=== PATIENT | female | born 1990 | race Caucasian/White ===

== ENCOUNTER 2016-11-27 12:59 | Outpatient (RCR) | payer OTHER ==
[~2016-11-27 12:59] MED LIST: ACHYD1T PO; AZIT-21 PO; AZIT250T PO; D-ME118S33 PO; DCS100C PO; HYDR-2890 PO; HYDR118S10 PO; IBP800T PO; NORG1TAB; OXYC-272 PO; PRD10T PO; PREN-115 PO
--- OUTSIDE RECORDS SUMMARY | 2016-11-27 13:04 | XMS REPORT | Continuity of Care Document ---
Author Author [facility] Address Unknown Phone Unavailable Allergies Active Description Code Type Severity Reaction Onset Reported/Identified Relationship to Patient Clinical Status Yes amoxicillin [id number] Drug Allergy Unknown N/A 12/04/2005 Yes albuterol [id number] Drug Allergy Unknown N/A 05/01/2007 Yes latex [id number] Drug Allergy Unknown N/A 01/23/2010 Yes amoxicillin Drug Allergy N/A N/A 08/04/2010 Yes latex OA N/A N/A 08/04/2010 Yes albuterol Drug Allergy N/A N/A 04/24/2013 Medications Problems Date Dx Coded Attending Type Code Diagnosis Diagnosed By 08/04/2010 OSBALDO ACUÑA DO V16.3 FAM HX CANCER, BREAST 08/04/2010 OSBALDO ACUÑA DO V76.10 BREAST SCREENING, UNSPECIFIED 08/04/2010 EILEEN MARIN MD V16.3 FAM HX CANCER, BREAST 08/04/2010 EILEEN MARIN MD V76.10 BREAST SCREENING, UNSPECIFIED 08/04/2010 OSBALDO ACUÑA DO V16.3 FAM HX CANCER, BREAST 08/04/2010 OSBALDO ACUÑA DO V76.10 BREAST SCREENING, UNSPECIFIED 08/04/2010 EILEEN MARIN MD V16.3 FAM HX CANCER, BREAST 08/04/2010 EILEEN MARIN MD V76.10 BREAST SCREENING, UNSPECIFIED 08/04/2010 JB OLIVEIRA APRN V16.3 FAM HX CANCER, BREAST 08/04/2010 JB OLIVEIRA APRN V76.10 BREAST SCREENING, UNSPECIFIED 08/04/2010 EILEEN MARIN MD V16.3 FAM HX CANCER, BREAST 08/04/2010 EILEEN MARIN MD V76.10 BREAST SCREENING, UNSPECIFIED 08/04/2010 JB OLIVEIRA APRN V16.3 FAM HX CANCER, BREAST 08/04/2010 JB OLIVEIRA APRN V76.10 BREAST SCREENING, UNSPECIFIED 11/15/2011 Ot 540.9 ACUTE APPENDICITIS NOS 11/15/2011 Ot 620.0 FOLLICULAR CYST OF OVARY 07/11/2012 Ot 079.99 VIRAL INFECTION NOS 07/11/2012 Ot 276.51 DEHYDRATION 07/11/2012 Ot 647.63 OTH VIRAL DIS-ANTEPARTUM 07/11/2012 Ot 648.93 OTH CURR COND-ANTEPARTUM 08/28/2012 Ot 644.03 THRT HELIO LABOR-ANTEPART 09/10/2012 Ot 664.01 DEL W 1 DEG LACERAT-DEL 09/10/2012 Ot V27.0 DELIVER-SINGLE LIVEBORN 10/22/2012 Ot 616.0 CERVICITIS 10/22/2012 Ot 617.0 UTERINE ENDOMETRIOSIS 10/22/2012 Ot 618.1 UTERINE PROLAPSE 04/24/2013 OSBALDO ACUÑA DO 112.1 CANDIDIASIS VAGINAL 04/24/2013 OSBALDO ACUÑA DO 623.5 LEUKORRHEA NOT SPECIFIED INFECTIVE 04/24/2013 EILEEN MARIN MD N 112.1 CANDIDIASIS VAGINAL 04/24/2013 EILEEN MARIN MD N 623.5 LEUKORRHEA NOT SPECIFIED INFECTIVE 04/24/2013 OSBALDO ACUÑA DO 112.1 CANDIDIASIS VAGINAL 04/24/2013 OSBALDO ACUÑA DO 623.5 LEUKORRHEA NOT SPECIFIED INFECTIVE 04/24/2013 EILEEN MARIN MD N 112.1 CANDIDIASIS VAGINAL 04/24/2013 EILEEN MARIN MD N 623.5 LEUKORRHEA NOT SPECIFIED INFECTIVE 04/24/2013 JB OLIVEIRA APRN A 112.1 CANDIDIASIS VAGINAL 04/24/2013 JB OLIVEIRA APRN A 623.5 LEUKORRHEA NOT SPECIFIED INFECTIVE 04/24/2013 EILEEN MARIN MD N 112.1 CANDIDIASIS VAGINAL 04/24/2013 EILEEN MARIN MD N 623.5 LEUKORRHEA NOT SPECIFIED INFECTIVE 04/24/2013 JB OLIVEIRA APRN A 112.1 CANDIDIASIS VAGINAL 04/24/2013 JB OLIVEIRA APRN A 623.5 LEUKORRHEA NOT SPECIFIED INFECTIVE 09/12/2013 EILEEN MARIN MD N 346.00 MIGRAINE WITH AURA WITHOUT MENTION OF INTRACTABLE MIGRAINE WITHOUT MENTION OF STATUS MIGRAINOSUS 09/12/2013 OSBALDO ACUÑA DO K 346.00 MIGRAINE WITH AURA WITHOUT MENTION OF INTRACTABLE MIGRAINE WITHOUT MENTION OF STATUS MIGRAINOSUS 09/12/2013 EILEEN MARIN MD 346.00 MIGRAINE WITH AURA WITHOUT MENTION OF INTRACTABLE MIGRAINE WITHOUT MENTION OF STATUS MIGRAINOSUS 09/12/2013 JB OLIVEIRA APRN A 346.00 MIGRAINE WITH AURA WITHOUT MENTION OF INTRACTABLE MIGRAINE WITHOUT MENTION OF STATUS MIGRAINOSUS 09/12/2013 EILEEN MARIN MD 346.00 MIGRAINE WITH AURA WITHOUT MENTION OF INTRACTABLE MIGRAINE WITHOUT MENTION OF STATUS MIGRAINOSUS 09/12/2013 JB OLIVEIRA APRN A 346.00 MIGRAINE WITH AURA WITHOUT MENTION OF INTRACTABLE MIGRAINE WITHOUT MENTION OF STATUS MIGRAINOSUS 11/11/2013 OSBALDO ACUÑA DO 709.9 SKIN LESIONS 11/11/2013 EILEEN MARIN MD 709.9 SKIN LESIONS 11/11/2013 JB OLIVEIRA APRN A 709.9 SKIN LESIONS 11/11/2013 EILEEN MARIN MD 709.9 SKIN LESIONS 11/11/2013 JB OLIVEIRA APRN 709.9 SKIN LESIONS 01/22/2014 PIEDAD COYNE MD Ot 705.83 HIDRADENITIS 06/25/2014 JB OLIVEIRA APRN V05.3 HEP B (ADULT) DX 06/25/2014 EILEEN MARIN MD V05.3 HEP B (ADULT) DX 06/25/2014 JB OLIVEIRA APRN V05.3 HEP B (ADULT) DX 07/09/2014 JB OLIVEIRA APRN A 599.0 URINARY TRACT INFECTION 07/09/2014 EILEEN MARIN MD 599.0 URINARY TRACT INFECTION 07/09/2014 JB OLIVEIRA APRN 599.0 URINARY TRACT INFECTION 11/09/2014 BJ OLIVEIRA APRN 625.8 OTHER SPECIFIED SYMPTOMS ASSOCIATED WITH FEMALE GENITAL ORGANS 07/15/2015 Ot 611.72 07/15/2015 Ot V16.3 07/15/2015 Ot 285.9 07/15/2015 Ot 617.9 07/15/2015 Ot 618.4 07/15/2015 Ot V72.63 07/15/2015 Ot V74.8 07/15/2015 PIEDAD COYNE MD Ot 782.2 08/14/2015 Ot 611.72 08/14/2015 Ot V16.3 08/14/2015 Ot 285.9 08/14/2015 Ot 617.9 08/14/2015 Ot 618.4 08/14/2015 Ot V72.63 08/14/2015 Ot V74.8 08/14/2015 PIEDAD COYNE MD Ot 782.2 08/14/2015 GEETHA KHAN SAND OPERATOR Ot J40 BRONCHITIS, NOT SPECIFIED ACUTE OR CH 08/14/2015 GEETHA KHAN SAND OPERATOR Ot R50.9 FEVER, UNSPECIFIED 08/14/2015 Ot 611.72 08/14/2015 Ot V16.3 08/14/2015 Ot 285.9 08/14/2015 Ot 617.9 08/14/2015 Ot 618.4 08/14/2015 Ot V72.63 08/14/2015 Ot V74.8 08/14/2015 PIEDAD COYNE MD Ot 782.2 10/21/2015 Ot R21 RASH AND OTHER NONSPECIFIC SKIN ERUPTION 01/26/2016 Ot 611.72 LUMP OR MASS IN BREAST 01/26/2016 Ot V16.3 FAMILY HX-BREAST MALIG 01/26/2016 Ot 285.9 ANEMIA NOS 01/26/2016 Ot 617.9 ENDOMETRIOSIS NOS 01/26/2016 Ot 618.4 UTERVAGINAL PROLAPSE NOS 01/26/2016 Ot V72.63 PRE-PROCEDURAL LABORATORY EXAMINATION 01/26/2016 Ot V74.8 SCREEN-BACTERIAL DIS NEC 01/26/2016 PIEDAD COYNE MD Ot 782.2 LOCAL SUPRFICIAL SWELLNG 01/27/2016 Ot R21 RASH AND OTHER NONSPECIFIC SKIN ERUPTION 11/21/2016 Ot 285.9 ANEMIA NOS 11/21/2016 Ot 617.9 ENDOMETRIOSIS NOS 11/21/2016 Ot 618.4 UTERVAGINAL PROLAPSE NOS 11/21/2016 Ot V72.63 PRE-PROCEDURAL LABORATORY EXAMINATION 11/21/2016 Ot V74.8 SCREEN-BACTERIAL DIS NEC 11/21/2016 PIEDAD COYNE MD Ot 782.2 LOCAL SUPRFICIAL SWELLNG 11/24/2016 Ot 285.9 ANEMIA NOS 11/24/2016 Ot 617.9 ENDOMETRIOSIS NOS 11/24/2016 Ot 618.4 UTERVAGINAL PROLAPSE NOS 11/24/2016 Ot V72.63 PRE-PROCEDURAL LABORATORY EXAMINATION 11/24/2016 Ot V74.8 SCREEN-BACTERIAL DIS NEC 11/24/2016 PIEDAD COYNE MD Ot 782.2 LOCAL SUPRFICIAL SWELLNG Procedures Code [place] [address] PAP SMEAR 2010 75.69 REPAIR OB LACERATION NEC 09/09/2012 19275 PAP SMEAR 2012 38909 I/D SIMPLE ABSCESS 11/12/2013 79325 CULTURE WOUND (AEROBIC) 11/12/2013 67764 UA W/ CULTURE IF INDICATED 07/09/2014 27677 CULTURE URINE 06/2014 20410 CULTURE URINE 11/2013 27535 AMERITOX 2013 17347 UA LONG DIP 09/02 70309 UA W/ CULTURE IF INDICATED 11/09/2014 96667 CULTURE UROGENITAL 11/10/2014 Results Encounters ACCT No. Visit Date/Time Discharge Status Pt. Type Provider Facility Loc./Unit Complaint [id number] 11/09/2014 13:52:00 11/09/2014 23: 59:59 CLS Outpatient JB OLIVEIRA APRN [id number] 09/02/2014 10:57:00 09/02/2014 23: 59:59 CLS Outpatient EILEEN MARIN MD [id number] 07/09/2014 09:29:00 07/09/2014 23: 59:59 CLS Outpatient JB OLIVEIRA APRN [id number] 03/26/2014 10:26:00 03/26/2014 23: 59:59 CLS Outpatient EILEEN MARIN MD [id number] 11/11/2013 16:04:00 11/11/2013 23: 59:59 CLS Outpatient OSBALDO ACUÑA DO [id number] 09/12/2013 09:00:00 09/12/2013 23: 59:59 CLS Outpatient EILEEN MARIN MD [id number] 04/24/2013 09:07:00 04/24/2013 23: 59:59 CLS Outpatient OSBALDO ACUÑA DO
--- NOTE | 2016-11-29 12:03 | ECHOCARDIOGRAPHY REPORT ---
PROCEDURE PHYSICIAN: NUZHAT PURI DATE OF PROCEDURE: 11/27/2016 TWO DIMENSIONAL ECHOCARDIOGRAM REPORT PRIMARY PHYSICIAN: OTHER PHYSICIAN: REFERRING PHYSICIAN: Dr. Coreas ORDERING PHYSICIAN: INDICATION FOR THE PROCEDURE: Palpitations MEASUREMENTS DERIVED VALUES LV DIAMETER (LAX) NORMALS NORMALS Diastolic 3.5 (3.6-5.2) Eject. Fract. 60% (60%+/-6%) Systolic (2.3-3.9) Diastolic Vol. % Shortening (0.22-0.42) Systolic Vol. Aortic Root IVS THICKNESS Diastolic 1. (0.6-1.1) LVPW THICKNESS Diastolic 1. (0.6-1.1) LA DIAMETER Systolic 2.6 (2.1-3.7) FINDINGS: 1. Technical quality is good. 2. The left ventricle is normal in size with normal contractility. Systolic function appeared to be normal. Estimated ejection fraction 60%. 3. The left atrium is normal in size. No clot or thrombus were seen within the left atrium. 4. The right atrium and right ventricle are normal in size. No clot or thrombus were seen within the right side. 5. Mitral valve is normal in morphology with mild mitral regurgitation noted by color Doppler flow. No mitral valve prolapse. No mitral valve stenosis. 6. Aortic valve is trileaflet with normal opening and closing pattern. No significant aortic valve stenosis or regurgitation was seen. 7. Tricuspid valve is normal in morphology with mild tricuspid regurgitation noted by color Doppler flow. Doppler across tricuspid valve estimated pulmonary artery pressure of 22+ right atrial pressure. 8. Pulmonic valve is functioning normally. 9. No pericardial effusion. CONCLUSION: 1. Normal left ventricular size and systolic function. Estimated ejection fraction 60%. 2. Mild mitral and tricuspid regurgitation. 3. Estimated pulmonary artery pressure of 30 mmHg. Job ID: [id number] Dictated Date: 11/29/2016 08:21:36 Document Restorer Date: 11/29/2016 11:58:55 / [email or web address]
== END 2017-02-25 | disposition home or self-care (01) ==
LOC: CARD 12:59
PROVIDERS: ATTEND Internal Medicine Cardiovascular Disease
DX: I47.9 Paroxysmal tachycardia, unspecified (principal); G43.909 Migraine, unspecified, not intractable, without status migrainosus; R00.2 Palpitations
CPT/HCPCS: 93225; 93226; 93306

== ENCOUNTER → 2017-10-29 | Outpatient (CLI) | payer OTHER | LOC: CARD 10:17 | PROVIDERS: ATTEND Physician Assistant | DX: I44.1 Atrioventricular block, second degree (principal); I49.3 Ventricular premature depolarization; I47.9 Paroxysmal tachycardia, unspecified; R00.2 Palpitations | CPT/HCPCS: 93017 ==

== ENCOUNTER → 2019-09-11 | Outpatient (CLI) | payer BC, OTHER ==
[2019-09-11 09:59] LABS: ALANINE AMINOTRANSFERASE 19 U/L (0-55); ALBUMIN 4.3 GM/DL (3.2-4.5); ALKALINE PHOSPHATASE 92 U/L (40-136); BILIRUBIN,TOTAL 0.4 MG/DL (0.1-1.0); BUN/CREATININE RATIO 10; CARBON DIOXIDE 24 MMOL/L (21-32); CHLORIDE 106 MMOL/L (98-107); CHOLESTEROL 153 MG/DL (< 200); GFR ESTIMATED > 60; GLUCOSE 85 MG/DL (70-105); HDL CHOLESTEROL 43 MG/DL (40-60); POTASSIUM 3.8 MMOL/L (3.6-5.0); SODIUM 140 MMOL/L (135-145); TOTAL PROTEIN 7.5 GM/DL (6.4-8.2); TRIGLYCERIDES 72 MG/DL (<150); VLDL CHOLESTEROL 14 MG/DL (5-40)
== END ==
LOC: CARD 09:27
PROVIDERS: ATTEND Internal Medicine Cardiovascular Disease
DX: I20.9 Angina pectoris, unspecified (principal); I49.3 Ventricular premature depolarization; I44.1 Atrioventricular block, second degree; I47.1 Supraventricular tachycardia
CPT/HCPCS: 36415; 80053; 80061; 84443; 93225; 93226

== ENCOUNTER → 2019-09-22 | Outpatient (CLI) | payer BC, OTHER | LOC: CARD 09:44 | PROVIDERS: ATTEND Internal Medicine Cardiovascular Disease | DX: I20.9 Angina pectoris, unspecified (principal); I49.3 Ventricular premature depolarization; I44.1 Atrioventricular block, second degree; I47.1 Supraventricular tachycardia | CPT/HCPCS: 93306 ==

== ENCOUNTER → 2020-12-15 | Outpatient (CLI) | payer SELFPAY | LOC: CARD 14:22 | PROVIDERS: ATTEND Internal Medicine Cardiovascular Disease | DX: I10 Essential (primary) hypertension (principal); I34.0 Nonrheumatic mitral (valve) insufficiency | CPT/HCPCS: 93306 ==

== ENCOUNTER → 2022-01-05 | Outpatient (CLI) | payer SELFPAY ==
[~2022-01-05] VITALS: Ht 177.8 cm; Wt 117.3 kg
[~2022-01-05] MED LIST changes: +MTP25TSR PO; +PANT20TA18 PO
== END | disposition home or self-care (01) ==
LOC: PREOP 05:43
PROVIDERS: ATTEND Surgery
DX: Z01.818 Encounter for other preprocedural examination (principal)

== ENCOUNTER → 2022-01-05 | Outpatient (CLI) | payer OTHER ==
--- NOTE | 2022-01-05 08:56 | Diagnostic Imaging Report ---
PROCEDURE: US Gallbladder. INDICATION: EPIGASTRIC PAIN TECHNIQUE: Multiple grayscale sonographic images were obtained of the right upper quadrant of the abdomen. CORRELATION STUDY: None FINDINGS: LIVER: There is dense echotexture within the visualized portions of the liver. The main portal vein is patent and with normal direction of flow. Liver length 14 cm. GALLBLADDER: The gallbladder demonstrates no definitive shadowing gallstones, abnormal gallbladder wall thickening or pericholecystic fluid. COMMON BILE DUCT: Partially obscured by overlying bowel gas but does not appear to be dilated at 0.2 cm. AORTA/IVC: Not well visualized. PANCREAS: Visualized portions appearing unremarkable. RIGHT KIDNEY: 10.4 x 5.4 x 4.5 cm. No hydronephrosis. OTHER: None. IMPRESSION: 1. Normal-sized liver with suggestion of hepatic steatosis. 2. Negative for gallstones or bile duct dilatation. Dictated by: Dictated on workstation # [id number]
== END ==
LOC: RAD 07:43
PROVIDERS: ATTEND Surgery
DX: R10.13 Epigastric pain (principal)
CPT/HCPCS: 76705

== ENCOUNTER → 2022-01-06 | Outpatient (CLI) | payer OTHER ==
[~2022-01-06] MED LIST changes: +CATHETER FLUSH 10 ML SYR IVP PRN
--- NOTE | 2022-01-06 13:36 | Diagnostic Imaging Report ---
RADIOPHARMACEUTICAL: 5.31mCi Tc-99m Choletec IV INDICATION: Epigastric pain COMPARISON: 01/05/2022 TECHNIQUE: Anterior dynamic imaging for 1 hour. Additional 60 minutes of imaging was performed after the patient ingested an 8 ounce can of Ensure Plus. FINDINGS: There is homogenous uptake throughout the liver. The gallbladder is visualized at 10minutes and small bowel at 60minutes. After the patient ingested an 8 ounce can of Ensure Plus, the gallbladder ejection fraction was calculated to be 31%, which is mildly low. IMPRESSION: 1. No evidence of acute cholecystitis or common duct obstruction. 2. The gallbladder ejection fraction is calculated to be 31%, which is mildly low as the lower limits of normal is 33%. Given mildly low gallbladder ejection fraction, this may relate to biliary dyskinesia or chronic acalculous cholecystitis. Some medications can also result in a decreased gallbladder ejection fraction. Dictated by: Dictated on workstation # [id number]
== END ==
LOC: CARD 11:00
PROVIDERS: ATTEND Surgery
DX: R10.13 Epigastric pain (principal)
CPT/HCPCS: 78227; A9537

== ENCOUNTER 2022-01-12 05:54 | Outpatient (CLI) | payer SELFPAY ==
[~2022-01-12] VITALS: Ht 177.8 cm; Wt 115.5 kg
[~2022-01-12 05:54] MED LIST changes: -CATHETER FLUSH 10 ML SYR IVP PRN
== END 2022-01-12 11:29 | disposition home or self-care (01) ==
LOC: PREOP 05:54
PROVIDERS: ATTEND Surgery
DX: Z01.818 Encounter for other preprocedural examination (principal)

== ENCOUNTER 2022-01-18 08:39 | Day surgery (SDC) | payer OTHER ==
[~2022-01-18] VITALS: Ht 177.8 cm; Wt 115.5 kg
[2022-01-18] VITALS (12 sets, daily range): BP systolic 116–132; BP diastolic 70–84
[2022-01-18] MEDS ORDERED: CLINDAMYCIN 600 MG/50 ML IVPB 50 ML IV ONE (09:15)
[2022-01-18] MEDS: LACTATED RINGERS 1,000 ML IV PRN ×2 (09:30→11:20)
--- NOTE | 2022-01-18 09:45 | Progress Note-Pre Operative ---
Pre-Operative Progress Note H&P Reviewed The H&P was reviewed, patient examined and no changes noted. Time Seen by Provider: 09:41 Date H&P Reviewed: Jan 18, 2022 Time H&P Reviewed: 09:41 Pre-Operative Diagnosis: Biliary Dyskinesia, Epigastric pain NICOLAS FLANNERY DO Jan 18, 2022 09:45
[2022-01-18] MEDS ORDERED: LIDOCAINE/EPI 2% 1:100,00 (XYLOCAINE) 20 ML VIAL ONE (10:09)
[2022-01-18] MEDS ORDERED: IOHEXOL 300 MG/ML 30 ML (OMNIPAQUE 300) VIAL INJ ONE (10:15)
[2022-01-18] MEDS ORDERED: MIDAZOLAM 2 MG/2 ML (VERSED) VIAL ONE (10:49)
[2022-01-18] MEDS ORDERED: fentaNYL INJ 100 MCG/2 ML AMP ONE (10:49)
--- NOTE | 2022-01-18 11:37 | Progress Note-Post Operative ---
Post-Operative Progess Note Surgeon (s)/Director Of Sales And Marketing (s) Surgeon NICOLAS FLANNERY DO Director Of Sales And Marketing: Robert Pre-Operative Diagnosis Biliary Dyskinesia, Epigastric pain Post-Operative Diagnosis same Procedure & Operative Findings Date of Procedure 01/18/22 Procedure Performed/Findings PROCEDURE: Laparoscopic cholecystectomy with intraoperative cholangiogram. COMPLICATIONS: None. PROCEDURE: The patient was taken to the operating suite and was prepped and draped in sterile fashion. A surgical pause was performed. Just superior to the umbilicus, a 12 mm incision was made. Dissection was taken down to the fascia, which was then scored and grasped with a Lennox and the abdomen was then entered. A 0 Vicryl suture was placed in a kebtrv-uv-zlatm fashion and a Retana trocar was placed and secured. Pneumoperitoneum was achieved. A 5mm trochar place in the subxyphoid and 2 in the right upper quadrant. The gallbladder was then grasped and elevated. The cystic duct, and cystic artery were then dissected out. Clip was placed on the distal portion of the cystic duct which was then partially transected. An arrow catheter was inserted into the duct. The cholangiogram was then performed. No filing defects and contrast made its way into the duodenum. Catheter removed. Clips were placed on proximal portion of the cystic duct and then the duct was then transected. Clips were placed along the proximal and distal portion of the cystic artery which was then transected. Hook cautery was used to dissect the gallbladder from the gallbladder fossa achieving hemostasis. The gallbladder was placed in an Endobag and removed through the 12 mm trocar site. The abdomen was then reinspected. Copious amounts of irrigation were used to irrigate the abdomen and there were no signs of active bleeding. Hemostasis had been achieved. The 12 mm fascial defect was then closed with 0 Vicryl suture that had been placed in a ymihzq-za-[id number] fashion. The abdomen was then desufflated, the trocars were removed. The abdomen was then washed and dried. The skin was then closed using 4-0 Monocryl in a subcuticular fashion. The abdomen was washed and dried and Skin Affix was place over incisions. Patient tolerated the procedure well without any complications and was taken to the recovery room in stable condition. Anesthesia Type GET Estimated Blood Loss Estimated blood loss (mL): scant Specimens/Packing Specimens Removed GB and contents NICOLAS FLANNERY DO Jan 18, 2022 11:37
[2022-01-18] MEDS ORDERED: ACHD5005 PO (11:39)
--- NOTE | 2022-01-18 11:39 | Progress Note-Post Operative ---
Post-Operative Progess Note Surgeon (s)/Assistant Site Manager (s) Surgeon NICOLAS FLANNERY DO Assistant Site Manager: none Pre-Operative Diagnosis Epigastric pain Post-Operative Diagnosis Gastritis Esophagitis Procedure & Operative Findings Date of Procedure 01/18/22 Procedure Performed/Findings PROCEDURE NOTE: After informed consent was obtained, the patient was brought to the endoscopy suite, placed in bed in left lateral decubitus position. She was administered IV sedation by the COMPUTER TECHNICAL SPECIALIST who then monitored vitals the entire time, heart rate, blood pressure and pulse ox and the scope was inserted down the mouth through the esophagus into the stomach. On the way down, noted some mild esophagitis, pushed into the stomach, pushed past the antrum and into the duodenum. Duodenum looked good. Pulled back and did a biopsy of the antrum, then retroflexed the scope, did not see hiatal hernia, took a picture of this area and then pulled the scope into the GE junction, took a picture of the esophagitis and then did a biopsy of the GE junction. Pushed the scope back into the stomach, suctioned all the air out of the stomach. At this point pulled the scope up the esophagus and out the mouth. Anesthesia Type GET Estimated Blood Loss Estimated blood loss (mL): scant Specimens/Packing Specimens Removed antral bx body of stomach bx GE jxn bx NICOLAS FLANNERY DO Jan 18, 2022 11:39
--- NOTE | 2022-01-18 11:41 | Discharge Inst-Surgical ---
Discharge Inst-Surgical Depart Medication/Instructions New, Converted or Re-Newed RX: Transmitted to Pharmacy Patient Instructions Follow up Appt: Make appointment for 1 week. [phone] Instructions: No lifting greater than 20 pounds. No strenuous activity. May shower in 24 hours, no tub bath or soaking. Use incentive spirometer at home as directed. No Smoking Skin/Wound Care: May remove bandages in am. You need to leave the Dermabond on incision it will fall off on it's own. Symptoms to Report: Appetite Changes, Extremity Discoloration, Numbness/Tingling, Swelling Increased, Bleeding Excessive, Eyesight Changes, Pain Increased, Urine Color Change, Constipation(Persistent), Fever over 101 degree F, Pain/Pressure in chest, Urinating Difficulty, Cough Up/Vomit Blood, Heart Beat Irreg/Pounding, Pain/Pressure in jaw, Cramps in feet or legs, Lightheadedness, Pain/Pressure in shoulder, Diarrhea(Persistent), Memory Changes Suddenly, Questions/Concerns, Weight gain consecutive days, Dizziness/Fainting, Nausea/Vomiting, Shortness of Breath, Weight gain over 2 pounds If questions or concerns contact your physician Or seek help at emergency department. Activity Activity as Tolerated: Yes Activity Instructions: Avoid Stress to Incision Diet Discharge Diet: Avoid Fatty Foods, Low Fat/Low Cholesterol Diet After 24 Hours: Clear Liquid if Nauseous If Any Problems/Questions/Issu: Contact Your Physician, Go to Emergency Room Skin/Wound Care Infection Signs and Symptoms: Increased Redness, Foul Odor of Wound, Increased Drainage, Skin Itchy or Has a Rash, Increased Swelling, Temperature Above 101 F Wound Care Comment: heating pad to shoulder or neck for pain Bathing Instructions: Shower Stitches/Eusebio/Dermabond Dis: Dermabond NICOLAS FLANNERY DO Jan 18, 2022 11:41
--- NOTE | 2022-01-18 11:41 | Endoscopy Discharge Instruct ---
Endo Procedure/Findings Findings 1.: Gastritis 2.: Other Findings (eophagitis) Discharge Instructions - Activity: You might feel a little sleepy until tomorrow. This is due to the medicine you received to relax you. Until tomorrow, you should: NOT drive a car, operate machinery or power tools. NOT drink any alcoholic beverages. NOT make any important decisions or sign importortant papers. Do not return to work until tomorrow, unless otherwise instructed. Resume previous activities tomorrow. Diet: Start by taking liquids. If you tolerate liquids, advance to solid food. 1.: EGD in 3 years Notify Physician - If you experience excessive bleeding, unusual abdominal pain, fever, or chest pain, contact your doctor immediately. NICOLAS FLANNERY DO Jan 18, 2022 11:41
[2022-01-18] MEDS ORDERED: KETOROLAC 30 MG/ML VIAL ONE (11:46)
[2022-01-18] MEDS ORDERED: proPOfol 200 MG/20 ML (DIPRIVAN) VIAL IV ONE (11:53)
[2022-01-18] MEDS ORDERED: LIDOCAINE PF 2% 5 ML (XYLOCAINE) VIAL ONE (11:54)
[2022-01-18] MEDS ORDERED: ROCURONIUM 10 MG/ML 5 ML SYRINGE IV ONE (11:54)
[2022-01-18] MEDS ORDERED: SEVOFLURANE (ULTANE) 15 ML INHAL SOLN ONE (11:54)
[2022-01-18] MEDS ORDERED: NEOSTIGMINE 3 MG/3 ML VIAL ONE (11:54)
[2022-01-18] MEDS ORDERED: ONDANSETRON 4 MG/2 ML (SDV) Z0FRAN ONE ×2 (11:54→13:19)
[2022-01-18] MEDS ORDERED: HYDROmorphone 2 MG/ML VIAL (DILAUDID) IV ONE (12:30)
[2022-01-18] MEDS ORDERED: ONDANSETRON 4 MG/2 ML (SDV) Z0FRAN IVP PRN (12:30)
--- NOTE | 2022-01-18 12:30 | Anesthesia-General Post-Op ---
General Patient Condition Mental Status/LOC: Same as Preop Cardiovascular: Satisfactory Nausea/Vomiting: Absent Respiratory: Satisfactory Pain: Controlled Complications: Absent Post Op Complications Complications None Follow Up Care/Instructions Patient Instructions None needed. Anesthesia/Patient Condition Patient Condition Patient is doing well, no complaints, stable vital signs, no apparent adverse anesthesia problems. No complications reported per nursing. SHAISTA ROBERT CRNA Jan 18, 2022 12:30
[2022-01-18] MEDS ORDERED: HYDROmorphone 2 MG/ML VIAL (DILAUDID) ONE (12:31)
[2022-01-18] MEDS ORDERED: HYDROcodone/APAP 5 MG/325 MG (LORTAB) TAB ONE (12:53)
[2022-01-18] MEDS ORDERED: HYDROcodone/APAP 5 MG/325 MG (LORTAB) TAB PO ONE (13:00)
[2022-01-18] MEDS ORDERED: ONDANSETRON 4 MG/2 ML (SDV) Z0FRAN IVP ONE (13:30)
--- NOTE | 2022-01-18 16:15 | Diagnostic Imaging Report ---
INDICATION: Fluoroscopy during intraoperative cholangiogram. Fluoroscopy was performed during the intraoperative cholangiogram in the OR. Contrast is injected via the cystic duct remnant. 7 seconds of fluoroscopic time was utilized. Intrahepatic and extrahepatic bile ducts are normal in caliber. There is flow of contrast into the duodenum. 24 images were obtained. IMPRESSION: Fluoroscopy during intraoperative cholangiogram. Dictated by: Dictated on workstation # [id number]
== END 2022-01-18 14:19 | disposition home or self-care (01) ==
LOC: SDC 08:39
PROVIDERS: ATTEND Surgery
DX: K82.8 Other specified diseases of gallbladder (principal); K81.1 Chronic cholecystitis; K29.50 Unspecified chronic gastritis without bleeding; K21.00 Gastro-esophageal reflux disease with esophagitis, without bleeding; E66.9 Obesity, unspecified; Z68.36 Body mass index [BMI] 36.0-36.9, adult; Z79.899 Other long term (current) drug therapy
CPT/HCPCS: 76000; 84703; 87081

== ENCOUNTER → 2023-01-08 | Outpatient (CLI) | payer MEDICAID, OTHER ==
[~2023-01-08] MED LIST changes: +ACHD5005 PO
[2023-01-08 10:04] LABS: HEMATOCRIT 47 % (35-52); HEMOGLOBIN 15.5 g/dL (11.5-16.0); MEAN CORPUSCULAR HEMOGLOBIN 29 pg (25-34); MEAN CORPUSCULAR HGB CONC 33 g/dL (32-36); MEAN CORPUSCULAR VOLUME 87 fL (80-99); MEAN PLATELET VOLUME 10.5 fL (9.0-12.2); PLATELET COUNT 247 10^3/uL (130-400); WHITE BLOOD COUNT 7.8 10^3/uL (4.3-11.0)
[2023-01-08 10:22] LABS: ALBUMIN 4.4 GM/DL (3.2-4.5); BILIRUBIN,TOTAL 0.5 MG/DL (0.1-1.0); CALCIUM 9.4 MG/DL (8.5-10.1); CREATININE SERUM 0.85 MG/DL (0.60-1.30); POTASSIUM 4.1 MMOL/L (3.6-5.0); TOTAL PROTEIN 8.1 GM/DL (6.4-8.2)
== END ==
LOC: LAB 09:48
PROVIDERS: ATTEND Internal Medicine Cardiovascular Disease
DX: I10 Essential (primary) hypertension (principal); I49.3 Ventricular premature depolarization; K21.9 Gastro-esophageal reflux disease without esophagitis; Z80.9 Family history of malignant neoplasm, unspecified
CPT/HCPCS: 36415; 80053; 80061; 83036; 84443; 85027

== ENCOUNTER → 2023-02-05 | Outpatient (CLI) | payer OTHER ==
[2023-02-05 10:16] VITALS: BP 113/69
--- NOTE | 2023-02-06 07:42 | Cardiology Stress Test Report ---
Stress Test Report Date of Procedure/Referring: Date of Procedure: February 05, 2023 PCP Sara Coreas MD Admitting Physician Admitting Physician: Attending Physician: Martha Hawley Indications: Palpitation Baseline Heart Rate: 68 Baseline Blood Pressure: Blood Pressure Systolic: 113 Blood Pressure Diastolic: 69 Baseline EKG: Baseline EKG: NSR Summary/Conclusion: Summary: In summary, the patient started exercising with a baseline heart rate, blood pressure and EKG mentioned above Patient was able to exercise for a total of 6 minutes on James protocol, METs 7.3 Maximum heart rate 167 Maximum blood pressure 186/80 Stress EKG, Minimal nondiagnostic changes Recovery EKG , Return to baseline Conclusion: 1. Good exercise tolerance for a total of 6 minutes on James protocol, 7.3 METs, achieving 89 percent of maximum expected heart rate 2. Minimal nondiagnostic EKG changes with exercise returned to baseline during recovery 3. No arrhythmia was noted Copy Copies To 1: [facility]/NUZHAT FREITAS MD February 06, 2023 07:42
== END ==
LOC: CARD 09:50
PROVIDERS: ATTEND Physician Assistant
DX: R00.2 Palpitations (principal)
CPT/HCPCS: 93017